=== PATIENT | male | born 1960 | race African-American/Black ===

== ENCOUNTER 2021-04-26 14:58 | Inpatient (IN) | payer OTHER, MEDICARE ==
[~2021-04-26] VITALS: Ht 182.9 cm; Wt 70.3 kg
--- NOTE | 2021-04-26 14:00 | NUR ---
RN NOTE RECEIVED REPORT FROM BRIDGER RAUSCH AT [facility]. PATIENT IS STABLE AT TIME OF ARRIVAL ON UNIT. WILL CONTINUE TO MONITOR THROUGHOUT SHIFT.
[2021-04-26] MEDS ORDERED: AMYL1CAP56 PO (15:21)
[2021-04-26 16:00] VITALS: BP 120/75
[2021-04-26] MEDS ORDERED: MAGNESIUM HYDROXIDE 30 ML UDC PO PRN (17:00)
[2021-04-26] MEDS ORDERED: Z GUARD REMEDY 2 OZ OINT TP PRN (17:00)
[2021-04-26] MEDS ORDERED: ONDANSETRON HCL/PF 4 MG/2 ML VIAL IVP PRN (17:00)
[2021-04-26] MEDS ORDERED: MAG HYDROX/AL HYDROX/SIMETH 30 ML UDC PO PRN (17:00)
[2021-04-26] MEDS ORDERED: ENOXAPARIN SODIUM 40 MG/0.4 ML DISP.SYRIN SQ SCH (18:00)
[2021-04-26] MEDS ORDERED: CEFTRIAXONE 1 G in IV D5W 50 ML IV SCH (18:00)
[2021-04-26] MEDS: DEXAMETHASONE SOD PHOSPHATE 10 MG/ML VIAL IV SCH (18:02)
--- NOTE | 2021-04-26 18:57 | NUR ---
RN NOTE PATIENT IS CURRENTLY ON ROOM AIR WITH NO SIGNS OF SOB. PATIENT IS AOX4. HOB AT SEMI FOWLERS POSITION. RFA #[id number] IS PATENT AND INTACT. BED IS LOCKED IN THE LOWEST POSITION, 3 GUARD RAILS RAISED, CALL HARRY WITHIN REACH, AND ALL HOSPITAL SAFETY PRECAUTIONS ARE BEING FOLLOWED. ALL DUE MEDS GIVEN AND PATIENT REMAINED STABLE THROUGHOUT SHIFT. WILL ENDORSE TO [employer]AR SALES ADVISOR RN.
--- NOTE | 2021-04-26 19:00 | NUR ---
RN NOTE REPORT RECEIVED FROM JB SPARKS, PATIENT IN BED, AO X 4, IN NO S/SX OF ACUTE DISTRESS AT THIS TIME. BREATHING IS EVEN AND UNLABORED, SATURATION AT 95% ON ROOM AIR, SR ON THE MONITOR, HR IS 78. NOTED IV SITE AT RFA 20G, PATENT AND FLUSHING WELL, NO S/S OF INFECTION OR INFILTRATION. SAFETY MEASURES IMPLEMENTED. APPROPRIATE ISOLATION PRECAUTIONS IN PLACE. HEAD OF BED ELEVATED. BED IS LOCKED, IN LOWEST POSITION AND SIDE RAILS UP X 2. CALL LIGHT WITHIN REACH OF THE PATIENT. WILL CONTINUE TO MONITOR AND REASSESS FOR ANY CHANGES.
[2021-04-26 20:00] VITALS: BP 124/84
[2021-04-26] MEDS ORDERED: AZITHROMYCIN 500 MG in IV D5W 250 ML IV SCH (20:00)
[2021-04-26] MEDS: ACETAMINOPHEN 325 MG TABLET PO PRN (20:41)
[2021-04-27] VITALS: BP 118/79
[2021-04-27 04:00] VITALS: BP 144/85
[2021-04-27 07:08] LABS: BASOPHILS % (AUTO) 0.3 % (0.0-2.0); HEMATOCRIT 44 % (39-51); HEMOGLOBIN 14.8 g/dL (13.5-17.5); LYMPHOCYTES # (AUTO) 0.6 K/uL (0.8-4.8); LYMPHOCYTES % (AUTO) 13.6 % (20.0-44.0); MEAN CORPUSCULAR HGB CONC 34 g/dl (31.0-36.0); MEAN CORPUSCULAR VOLUME 93 fL (80-96); MONOCYTES # (AUTO) 0.3 K/uL (0.1-1.30); MONOCYTES % (AUTO) 7.6 % (2.0-12.0); NEUTROPHILS # (AUTO) 3.5 K/uL (1.8-8.9); NEUTROPHILS % (AUTO) 78.5 % (43.0-81.0); PLATELET COUNT (AUTO) 182 K/uL (150-450); RED BLOOD CELL COUNT(AUTO) 4.72 MIL/uL (4.5-6.0); WHITE BLOOD COUNT (AUTO) 4.5 K/uL (4.3-11.0)
--- NOTE | 2021-04-27 07:31 | NUR ---
RN NOTE PATIENT IS CURRENTLY ON ROOM AIR WITH NO SIGNS OF SOB. PATIENT IS AOX4. HOB AT SEMI FOWLERS POSITION. RFA #[id number] IS PATENT AND INTACT. BED IS LOCKED IN THE LOWEST POSITION, 3 GUARD RAILS RAISED, CALL HARRY WITHIN REACH, AND ALL HOSPITAL SAFETY PRECAUTIONS ARE BEING FOLLOWED. WILL CONTINUE TO MONITOR THROUGHOUT SHIFT.
[2021-04-27 08:00] VITALS: BP 104/71
[2021-04-27] MEDS: DEXAMETHASONE SOD PHOSPHATE 10 MG/ML VIAL IV SCH (08:35)
[2021-04-27 08:50] LABS: CALCIUM, SERUM 9.1 mg/dL (8.5-10.1); CREATININE 0.8 mg/dL (0.6-1.3); MAGNESIUM 1.8 mg/dL (1.8-2.4); PHOSPHORUS 3.2 mg/dL (2.5-4.9); POTASSIUM 4.2 mmol/L (3.5-5.1)
[2021-04-27 12:00] VITALS: BP 136/87
[2021-04-27] MEDS ORDERED: AZIT250T13 PO (12:50)
[2021-04-27] MEDS: ACETAMINOPHEN 325 MG TABLET PO PRN (15:06)
--- NOTE | 2021-04-27 17:00 | NUR ---
RN NOTE REPORT GIVEN TO EMT AT BEDSIDE. PATIENT IN STABLE CONDITION ON ROOM AIR AT TIME OF DC.
== END 2021-04-27 15:52 | disposition home or self-care (01) | DRG 177 ==
LOC: TELE1 14:58
PROVIDERS: ADMIT Internal Medicine; ATTEND Internal Medicine
DX: U07.1 COVID-19 (principal); J12.82 Pneumonia due to coronavirus disease 2019; J96.01 Acute respiratory failure with hypoxia; K86.1 Other chronic pancreatitis
CPT/HCPCS: 36415; 71045-TC; 80048-TC; 83735-TC; 84100-TC; 85025-TC; G0378; J0456; J0696; J1100; J1650; J2405; J7050; J7060